=== PATIENT | female | born 1960 | race Two or more races ===

== ENCOUNTER 2023-10-16 20:18 | Emergency (ER) | payer OTHER ==
[2023-10-16 20:32] VITALS: BP 151/79; PULSE 78; RESP 18; BMI 29.9
[2023-10-16] MEDS ORDERED: ONDANSETRON 4 MG/2 ML VIAL ONE (21:06)
[2023-10-16] MEDS ORDERED: ACETAMINOPHEN INJECTION 100 ML IVPB ONE (21:06)
[2023-10-16] MEDS: SODIUM CHLORIDE 0.9% 500 ML INFUS.BAG IV ONE (21:23)
[2023-10-16] MEDS: ONDANSETRON 4 MG/2 ML VIAL IVPB ONE (21:23)
[2023-10-16 21:27] LABS: BASO % 0.9 % (0-2.0); EOS % 2.7 % (0-4.5); HEMATOCRIT 35.3 % (32.4-45.2); HEMOGLOBIN 11.8 GM/dL (10.7-15.3); LYMPH % 19.2 % (8-40); MCH 26.7 pg (25.7-33.7); MCHC 33.4 g/dl (32.0-36.0); MEAN CELL VOLUME 80.1 fl (80-96); MEAN PLT VOLUME 8.5 fl (7.5-11.1); MONO % 4.5 % (3.8-10.2); NEUT % 72.7 % (42.8-82.8); PLATELET COUNT 319 10^3/uL (134-434); RBC 4.41 M/mm3 (3.60-5.2); RDW 14.4 % (11.6-15.6); WHITE BLOOD COUNT 8.9 K/mm3 (4.0-10.0)
[2023-10-16] MEDS ORDERED: FAMOTIDINE 20 MG TABLET ONE (21:31)
[2023-10-16] MEDS ORDERED: FAMOTIDINE 20 MG/50 ML IVPB 20 MG/50 ML MG IVPB ONE (21:31)
[2023-10-16] MEDS ORDERED: MAG HYDROX/AL HYDROX/SIMETH 30 ML UNIT-DOSE CUP ONE (21:31)
[2023-10-16] MEDS ORDERED: SUCRALFATE 1 GM TABLET (FP) ONE (21:31)
[2023-10-16] MEDS: MAG HYDROX/AL HYDROX/SIMETH 30 ML UNIT-DOSE CUP PO ONE (21:38)
[2023-10-16] MEDS: FAMOTIDINE 20 MG/50 ML IVPB 20 MG/50 ML MG IVPB ONE (21:38)
[2023-10-16] MEDS: METOCLOPRAMIDE HCL INJECTION 10 MG/2 ML VIAL IVPB ONE (21:38)
[2023-10-16 21:53] LABS: POTASSIUM 4.4 mmol/L (3.5-5.1)
[2023-10-16 21:55] LABS: CALCIUM 9.8 mg/dL (8.5-10.1)
[2023-10-16 21:56] LABS: ALBUMIN 3.5 g/dl (3.4-5.0); BLOOD UREA NITROGEN 19.9 mg/dL (7-18)
[2023-10-16 21:59] LABS: CREATININE 0.8 mg/dL (0.55-1.3)
[2023-10-16 22:00] LABS: BILIRUBIN,TOTAL 0.5 mg/dL (0.2-1); TOT PROT 7.7 g/dl (6.4-8.2)
[2023-10-16] MEDS: ACETAMINOPHEN 1000 MG/100 ML BAG IVPB ONE ×2 (22:00→22:17)
== END 2023-10-17 00:03 | disposition home or self-care (01) ==
LOC: JER 20:18
PROC: 3E033GC Introduction of Other Therapeutic Substance into Peripheral Vein, Percutaneous Approach (ICD-10-PCS; principal; 2023-10-16)
PROC: 3E033NZ Introduction of Analgesics, Hypnotics, Sedatives into Peripheral Vein, Percutaneous Approach (ICD-10-PCS; 2023-10-16)
DX: R10.13 Epigastric pain (principal); R11.0 Nausea
CPT/HCPCS: 36415; 71045-TC-FY; 80053; 83605; 83690; 84478; 84484; 85025; 93005; 93010; 99285-25; J0131